=== PATIENT | male | born 1980 | race African-American/Black ===

== ENCOUNTER 2017-01-10 05:39 | Emergency (ER) | payer MEDICARE, MEDICAID ==
[~2017-01-10] VITALS: Ht 170.2 cm; Wt 66.7 kg
[~2017-01-10 05:39] MED LIST: IBUPROFEN600 MG ORAL; NORCO 5-325 TA1 EACH ORAL; TRAMADOL HCL50 MG ORAL
[2017-01-10] MEDS ORDERED: Lidocaine 1% MPF 10mg/ml 5ml ONE (06:06)
[2017-01-10] MEDS ORDERED: Lidocaine 1% Plain 30 ml INJ ONE (06:07)
--- NOTE | 2017-01-10 06:08 | Emergency Room Report ---
History of Present Illness General Chief Complaint: Pain Source: Patient Present Illness HPI Is a 36-year-old male with multiple chief complaints. The first complaint is he has callus on his feet. His he used a razor to cut him off. He went to see a field representatives director for this. He has no trauma. His been ongoing for months. No fever chills but no nausea no vomiting. Worse with walking. Second complaint is PTSD symptoms. 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 Now he has jeans of smell of the person on his hand. Also felt been pulling on on him and he can't sleep. He normally see a psychologist which helped. But because of his insurance change he cant afford her anymore. He doesn't know who his new doctor this was new insurance. Denies suicidal thought homicidal thought. Third complaint is going pain. For the last 4 days he noticed there are lumps in his anal area. Worse on the right side. No fever or chills. No nausea vomiting. He does have some dysuria but no discharge. Also with testicular pain. He is sexually active. Allergies: Coded Allergies: No Known Allergies (Unverified , 04/03/16) Patient History Past Medical History: see triage record, old chart reviewed Past Surgical History: other Pertinent Family History: none Social History: Reports: smoking Immunizations: other Reviewed Nursing Documentation: PMH: Agreed, PSxH: Agreed Review of Systems Eye: Denies: blurred vision, eye pain ENT: Denies: ear pain, nose congestion, throat swelling Respiratory: Denies: cough, shortness of breath Cardiovascular: Denies: chest pain, palpitations Gastrointestinal: Denies: abdominal pain, diarrhea, nausea, vomiting Genitourinary: Reports: discharge Musculoskeletal: Denies: back pain, joint pain Skin: Denies: rash Neurological: Denies: headache, numbness Endocrine: Denies: increased thirst, increased urine Hematologic/Lymphatic: Denies: easy bruising All Other Systems: negative except mentioned in HPI Physical Exam Vital Signs Date Time Temp Pulse Resp B/P Pulse Ox O2 Delivery O2 Flow Rate FiO2 01/10/17 05:42 97.3 86 18 107/72 97 Room Air vitals normal Sp02 EP Interpretation: reviewed, normal General Appearance: well appearing, no apparent distress, alert Head: normocephalic, atraumatic Eyes: bilateral eye EOMI, bilateral eye PERRL ENT: hearing grossly normal, normal pharynx Neck: full range of motion, supple, no meningismus Respiratory: chest non-tender, lungs clear, normal breath sounds Cardiovascular #1: regular rate, rhythm, no murmur Gastrointestinal: normal bowel sounds, non tender, no mass, no organomegaly, no bruit, non-distended Genitourinary: other - Patient with Inguinaladenopathy on the right. No testicular tenderness or penile tenderness. Musculoskeletal: back normal, gait/station normal, normal range of motion, other - Right foot: He has callus on lateral aspect of the great toe And ball of the foot. Also on the heel. Neurologic: alert, oriented x3 Psychiatric: mood/affect normal Skin: warm/dry Medical Decision Making Diagnostic Impression: Primary Impression: Urethritis, unspecified Additional Impression: Callus of foot ER Course Followup with your DrLinda in 2-5 days. Return if symptom worsen. Last Vital Signs Date Time Temp Pulse Resp B/P Pulse Ox O2 Delivery O2 Flow Rate FiO2 01/10/17 05:42 97.3 86 18 107/72 97 Room Air Status: improved Disposition: HOME, SELF-CARE Condition: Stable Additional Instructions: Followup with your DrLinda in 7 days. You may be referred to see mental health patient reassurance. Return if symptom worsen. ZAHIDA TOLLIVER M.D. January 10, 2017 06:08
[2017-01-10] MEDS ORDERED: Azithromycin 250mg tab ORAL ONE (06:15)
[2017-01-10 06:24] VITALS: BP 107/72
== END 2017-01-10 06:24 | disposition home or self-care (01) ==
LOC: EMR 06:10
DX: N34.2 Other urethritis (principal); F17.200 Nicotine dependence, unspecified, uncomplicated
CPT/HCPCS: 96372; 99283; J0696

== ENCOUNTER 2017-03-30 13:31 | Emergency (ER) | payer MEDICARE, MEDICAID ==
[~2017-03-30] VITALS: Ht 170.2 cm; Wt 66.7 kg
--- NOTE | 2017-03-30 13:52 | Emergency Room Report ---
History of Present Illness General Chief Complaint: Upper Extremity Injury Source: Patient Present Illness HPI 37 yO Male presents to the ED C/O 10/10 pain in the left shoulder that radiates up to the side of the neck and down into the left elbow. pt. reports that a heavy door fell onto his shoulder 3 days ago, and his symptoms have not improved. pt. reports clicking with movement of the left shoulder. pt. denies LOC or N/V. Pt. reports intermittent tingling sensation down the shoulder into the elbow. pt. denies numbness. pt. denies prior injury. Denies numbness tingling or loss of sensation or gross motor movements of the extremities, incontinence of bowel or bladder. Denies CP, Palpitations, LOC, AMS, dizziness, Changes in Vision, Sensation, paresthesias, or a sudden severe headache. Allergies: Coded Allergies: No Known Allergies (Unverified , 04/03/16) Patient History Past Medical History: see triage record Past Surgical History: none Pertinent Family History: none Immunizations: UTD Reviewed Nursing Documentation: PMH: Agreed, PSxH: Agreed Nursing Documentation-PMH Past Medical History: No History, Except For Review of Systems All Other Systems: negative except mentioned in HPI Physical Exam Vital Signs Date Time Temp Pulse Resp B/P Pulse Ox O2 Delivery O2 Flow Rate FiO2 03/30/17 13:36 98.6 93 18 114/75 98 Room Air Sp02 EP Interpretation: reviewed, normal General Appearance: no apparent distress, alert, GCS 15, non-toxic Head: normocephalic, atraumatic Eyes: bilateral eye PERRL, bilateral eye normal inspection ENT: hearing grossly normal, normal pharynx, no angioedema, normal voice Neck: full range of motion, no bony tend, supple/symm/no masses, tender lateral - left lateral TTP in the SCM musculature. no midline ttp. Respiratory: lungs clear, normal breath sounds, speaking full sentences Cardiovascular #1: regular rate, rhythm Cardiovascular #2: 2+ radial (L) Musculoskeletal: back normal, gait/station normal, normal range of motion, tender - TTP to the anterior left shoulder , FROM noted, ttp to the SCM musculature, no obvious deformity, NVI distally, no midline C-Spine tenderness or obvious deformity. FROM of Neck. Neurologic: alert, oriented x3, responsive, motor strength/tone normal, sensory intact, speech normal Psychiatric: judgement/insight normal, memory normal, mood/affect normal Skin: normal color, no rash, warm/dry, well hydrated Medical Decision Making PA Attestation Dr. Gordon is my supervising Physician whom patient management has been discussed with. Diagnostic Impression: Primary Impression: Shoulder pain, left Qualified Codes: M25.512 - Pain in left shoulder Additional Impressions: Muscle strain Contusion of shoulder, left Qualified Codes: S40.012A - Contusion of left shoulder, initial encounter ER Course 37 yO Male presents to the ED C/O 10/10 pain in the left shoulder that radiates up to the side of the neck and down into the left elbow. pt. reports that a heavy door fell onto his shoulder 3 days ago, and his symptoms have not improved. pt. reports clicking with movement of the left shoulder. pt. denies LOC or N/V. Pt. reports intermittent tingling sensation down the shoulder into the elbow. pt. denies numbness. pt. denies prior injury. Denies numbness tingling or loss of sensation or gross motor movements of the extremities, incontinence of bowel or bladder. Denies CP, Palpitations, LOC, AMS, dizziness, Changes in Vision, Sensation, paresthesias, or a sudden severe headache. Ddx considered but are not limited to Fracture, dislocation, contusion, Sprain/ Strain/Spasm, Epidural abscess, Neoplastic mets. Vital signs: are WNL, pt. is afebrile H&PE are most consistent with musculoskeletal injury will perform imaging to r/ o fractures/dislocations. ORDERS: - X-ray Left Shoulder 3 views - negative for fx, Dislocation, or significant soft tissue injury, per preliminary read in ED by Dr. Stoner - interpretation is scribed by PA. d/w pt. results of his imaging, and that he will be d/c with conservative treatment. d/w pt. to follow up with a primary care provider. if symptoms continue then more extensive diagnostic imaging may be warranted which is performed as an outpatient. d/w pt. to return with worsening or new symptoms. DISCHARGE: At this time pt. is stable for d/c to home. Will provide printed patient care instructions, and any necessary prescriptions. Care plan and follow up instructions have been discussed with the patient prior to discharge. Last Vital Signs Date Time Temp Pulse Resp B/P Pulse Ox O2 Delivery O2 Flow Rate FiO2 03/30/17 13:36 98.6 93 18 114/75 98 Room Air Disposition: HOME, SELF-CARE Condition: Stable Scripts Cyclobenzaprine Hcl* (FLEXERIL*) 10 Mg Tablet 10 MG ORAL THREE TIMES A DAY for 7 Days, #21 TAB Prov: Flor Tsang 03/30/17 Ibuprofen* (MOTRIN*) 600 Mg Tablet 600 MG ORAL THREE TIMES A DAY, #30 TAB 0 Refills Prov: Flor Tsang 03/30/17 Departure Forms: Return to Work Return to Work Date: Mar 31, 2017 Work Restrictions: No Heavy Lifting Other Restrictions: light duty x 1 week. Return to Full Activity: Apr 07, 2017 Patient Instructions: CONTUSION, Upper Extremity Additional Instructions: Take medications as directed. Follow up with a Primary Care Provider in 3-5 days, even if your symptoms have resolved. --Please review list of primary care clinics, if you do not already have a primary care provider Return sooner to ED if new symptoms occur, or current symptoms become worse. Do not drink alcohol, drive, or operate heavy machinery while taking muscle relaxer as this may cause drowsiness. - Please note that this Emergency Department Report was dictated using [employer] professional technology software, occasionally this can lead to erroneous entry secondary to interpretation by the dictation equipment. Flor Tsang Mar 30, 2017 13:52
[2017-03-30 13:59] VITALS: BP 114/75
[2017-03-30] MEDS ORDERED: CYCLOBENZAPRINE10 MG ORAL (14:28)
[2017-03-30] MEDS ORDERED: IBUPROFEN600 MG ORAL (14:28)
[2017-03-30 14:35] VITALS: BP 114/75
--- NOTE | 2017-03-31 09:03 | Diagnostic Imaging Report ---
Indication: Pain Findings: 3 views of the left shoulder were obtained. Alignment of the left shoulder is normal. No acute fracture is identified. Soft tissues are unremarkable. Impression: Negative left shoulder examination
== END 2017-03-30 14:35 | disposition home or self-care (01) ==
LOC: EMR 14:02
DX: M25.512 Pain in left shoulder (principal); S40.012A Contusion of left shoulder, initial encounter; T14.8 Other injury of unspecified body region; W22.8XXA Striking against or struck by other objects, initial encounter; Y92.9 Unspecified place or not applicable
CPT/HCPCS: 99284

== ENCOUNTER 2017-06-10 21:46 | Emergency (ER) | payer MEDICARE, MEDICAID ==
[~2017-06-10] VITALS: Ht 170.2 cm; Wt 65.3 kg
[~2017-06-10 21:46] MED LIST changes: +CYCLOBENZAPRINE10 MG ORAL
[2017-06-10] MEDS ORDERED: NKM (21:57)
[2017-06-10 22:00] VITALS: BP 0/0
--- NOTE | 2017-06-10 22:09 | Emergency Room Report ---
History of Present Illness General Chief Complaint: Pain Source: Patient Present Illness HPI Patient is a 37-year-old male who presented after increased right-sided leg pain. Patient reported having increased pain for the past 3 days. Patient gradual onset of symptoms. He does not recall a recent trauma. Patient had Reported having similar symptoms in the past. he reports having unprotected sex approximately 2 weeks ago. He denies any penile lesions or discharge. Allergies: Coded Allergies: No Known Allergies (Unverified , 04/03/16) Patient History Reviewed Nursing Documentation: PMH: Agreed, PSxH: Agreed Nursing Documentation-PMH Past Medical History: No History, Except For History Of Psychiatric Problem: Yes - PTSD Review of Systems All Other Systems: negative except mentioned in HPI Physical Exam Vital Signs Date Time Temp Pulse Resp B/P (MAP) Pulse Ox O2 Delivery O2 Flow Rate FiO2 06/10/17 21:52 98.1 93 14 109/76 98 Room Air General Appearance: well appearing, no apparent distress, alert, GCS 15 Head: normocephalic, atraumatic ENT: hearing grossly normal, normal voice Neck: full range of motion, supple Respiratory: no respiratory distress, speaking full sentences Cardiovascular #1: normal peripheral pulses, regular rate, rhythm, no edema, no gallop Musculoskeletal: no calf tenderness Neurologic: normal gait Psychiatric: mood/affect normal Skin: no rash Medical Decision Making Diagnostic Impression: Primary Impression: Lymphadenopathy ER Course Patient presented for extremity pain. Differential diagnosis included but was not limited to fracture, contusion, vascular insufficiency, aortic aneurysm, cellulitis.Patient was advised outpatient STD testing as well as further workup of lymphadenopathy. Patient was advised alcohol cessation.The patient is advised to follow up with primary care doctor in 1-2 days. Patient is advised to return if any worsening condition or if any changes in status that are concerning. Last Vital Signs Date Time Temp Pulse Resp B/P (MAP) Pulse Ox O2 Delivery O2 Flow Rate FiO2 06/10/17 21:52 98.1 93 14 109/76 98 Room Air Status: improved Disposition: HOME, SELF-CARE Condition: Stable Jaciel Stoner Jun 10, 2017 22:09
== END 2017-06-10 22:30 | disposition home or self-care (01) ==
LOC: EMR 22:16
DX: R59.1 Generalized enlarged lymph nodes (principal); M79.604 Pain in right leg; F43.10 Post-traumatic stress disorder, unspecified; X58.XXXA Exposure to other specified factors, initial encounter; Y93.9 Activity, unspecified; Y99.9 Unspecified external cause status
CPT/HCPCS: 99282

== ENCOUNTER 2018-04-07 18:02 | Emergency (ER) | payer MEDICARE, MEDICAID ==
[~2018-04-07] VITALS: Ht 170.2 cm; Wt 66.7 kg
[~2018-04-07 18:02] MED LIST changes: +NKM
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
[2018-04-07] MEDS ORDERED: TYLENOL EXTRA500 MG ORAL (18:56)
[2018-04-07 19:05] VITALS: BP 111/78
== END 2018-04-07 19:10 | disposition home or self-care (01) ==
LOC: EMR 18:44
DX: S70.02XA Contusion of left hip, initial encounter (principal); S70.12XA Contusion of left thigh, initial encounter; V43.52XA Car driver injured in collision with other type car in traffic accident, initial encounter; Y92.410 Unspecified street and highway as the place of occurrence of the external cause
CPT/HCPCS: 99283